=== PATIENT | female | born 1955 | race Caucasian/White ===

== ENCOUNTER 2018-05-26 16:00 | Outpatient (RCR) | payer BC | END 2018-05-29 | disposition home or self-care (01) | LOC: PT | DX: S42.252D Displaced fracture of greater tuberosity of left humerus, subsequent encounter for fracture with routine healing (principal); W17.89XD Other fall from one level to another, subsequent encounter ==

== ENCOUNTER 2018-07-18 16:00 | Outpatient (RCR) | payer BC | END 2018-07-18 16:30 | disposition home or self-care (01) | LOC: PT 16:00 | DX: S42.252D Displaced fracture of greater tuberosity of left humerus, subsequent encounter for fracture with routine healing (principal); W19.XXXD Unspecified fall, subsequent encounter ==

== ENCOUNTER 2020-02-15 16:00 | Outpatient (RCR) | payer BC | END 2020-02-15 16:30 | disposition still patient (30) | LOC: PT 16:00 | DX: S72.001A Fracture of unspecified part of neck of right femur, initial encounter for closed fracture (principal); Z98.890 Other specified postprocedural states ==